=== PATIENT | female | born 1955 | race Caucasian/White ===

== ENCOUNTER 2023-07-02 10:54 | Emergency (ER) | payer MEDICARE, OTHER, SELFPAY ==
[2023-07-02 11:15] VITALS: BP 130/76; PULSE 75; RESP 20; TEMP 36.8; O2SAT 98; BMI 29.5
--- NOTE | 2023-07-02 11:41 | EXP.UTC ---
Discharge Plan Disposition Patient Disposition: Home, Self-Care Condition: Good Prescriptions Prescriptions: New cefdinir 300 mg capsule 300 mg PO BID Qty: 20 0RF phenazopyridine [Pyridium] 200 mg tablet 200 mg PO Q8H 2 Days Qty: 6 0RF No Action insulin lispro 100 unit/mL solution See Rx Instructions .ROUTE .COMPLEX Patient Comments: USE DIRECTED UP TO 50 UNITS PER DAY VIA PUMP [E10.9] Rx Instructions: SEE INSTRUCTIONS losartan 100 mg Tablet 100 mg PO DAILY Referrals Follow up/Referrals: Abilio Bocanegra [Primary Care Provider] - See instructions Activity Restrictions/Add. Instructions Additional Instructions/Restrictions: *Increase fluids. Water not Soda or Tea *Start antibiotic immediately and be sure to take as ordered for the FULL length of time although you should start to see improvement over the next 48 hours *Pyridium as needed Remember this medication will turn your urine . This is normal but it will stain what ever it gets on *You should not use Pyridium for more than 48 hours. If so , follow up with your primary physician to review urine culture and ensure that antibiotic is adequate for infection *Be SURE to follow up anytime for new or worsening symptoms with your family doctor. AND in 48 hours for urine culture results with your family doctor, if you do not have a doctor then you may call back to the [facility] for urine culture results and further treatment. We do recommend that you choose and establish care with a Primary Care Physician. ?AND follow up with them ?in 10-14 days to repeat UA to ensure infection is resolved and blood no longer present *Be sure to let your PCP know that we sent urine cultures from the [facility] so they can follow up to ensure that you area the on the correct antibiotic Call your doctor office and make appointment for 48 hours (2 days from today) ?to follow up and get the results of your urine culture and further treatment Clinical Impressions Clinical Impression: UTI (urinary tract infection) Qualifiers: Urinary tract infection type: site unspecified Hematuria presence: with hematuria Qualified Code(s): N39.0 - Urinary tract infection, site not specified Instructions Patient Instructions: DI for Urinary Tract Infection (UTI), Cefdinir Discharge [place] [facility] [place] General Stated complaint: burning when urinates, frequency Mode of Arrival: Ambulatory Source of Information: Patient Limitations: No Limitations Time Seen by Provider: 07/02/23 11:42 Description of Symptoms (Recalled from Triage Doc. by RN): PATIENT C/O BURNING WITH URINATION AND BLADDER PRESSURE X 3 DAYS HEENT Symptoms (Recalled from RN notes): No Resp Symptoms (Recalled from RN notes): No Skin Symptoms (Recalled from RN notes): No MS Symptoms (Recalled from RN notes): No Functional Status (Recalled from RN notes): WNL History of Present Illness Provider Complaint: Patient state that she thinks she has a UTI States that she has been having burning with urination and bladder pressure for 3 days States that today it wasnt any better so she came in to get her urine checked Related Data Home Medications Medication Instructions Recorded Confirmed insulin lispro 100 unit/mL See Rx Instructions .Route 07/02/23 07/02/23 subcutaneous solution .COMPLEX Diabetes losartan 100 mg tablet 100 mg PO DAILY Hypertension 07/02/23 07/02/23 Previous Rx's Medication Instructions Recorded cefdinir 300 mg capsule 300 mg PO BID #20 caps 07/02/23 phenazopyridine 200 mg tablet 200 mg PO Q8H pain 2 days #6 tabs 07/02/23 (Pyridium) Allergies Allergy/AdvReac Type Severity Reaction Status Date / Time codeine Allergy Verified 07/02/23 11:28 lisinopril Allergy Verified 07/02/23 11:28 Worker's Comp Is this a Worker's Comp case?: No [facility] Disclaimer: The information contained in this section may have been updated after the patient was seen, as this inform
[2023-07-02 11:43] LABS: Microscopic, Urine URINE MICROSCOPIC (MICROSCOPIC)
[2023-07-02 11:47] LABS: Bilirubin,Urine Negative (Negative); Blood, Urine 1+ (Negative); Color,Urine YELLOW (Yellow); Glucose,Urine (UA) Negative (Negative); Ketones,Urine Negative (Negative); Leukocyte Esterase,Urine 3+ (Negative); Nitrate,Urine POSITIVE (Negative); Protein,Urine 1+ (Negative); Urobilinogen,Urine 0.2 EU/dl (0.2)
[2023-07-02 11:49] LABS: Appearance,Urine Slightly Cloudy (Clear)
[2023-07-02 11:55] VITALS: BP 130/76; PULSE 75; RESP 20; TEMP 36.8; O2SAT 98
[2023-07-02 12:05] LABS: Squamous Epithelial Cell,Urine Occasional #/hpf (0-5); WBC,Urine TNTC #/hpf (0-3)
== END 2023-07-02 12:03 | disposition home or self-care (01) ==
PROVIDERS: Emergency Provider Nurse Practitioner; PCP Pediatrics
DX: N39.0 Urinary tract infection, site not specified (principal); B96.4 Proteus (mirabilis) (morganii) as the cause of diseases classified elsewhere; R31.9 Hematuria, unspecified; E10.9 Type 1 diabetes mellitus without complications; I10 Essential (primary) hypertension; Z79.4 Long term (current) use of insulin
CPT/HCPCS: 81001; 87086; 87088; 87186; 99204; 99212; G0463